=== PATIENT | female | born 1995 | race Two or more races ===

== ENCOUNTER 2019-07-11 20:19 | Emergency (ER) | payer MEDICAID ==
[~2019-07-11] VITALS: Ht 177.8 cm; Wt 81.6 kg
[2019-07-11 20:57] VITALS: BP 141/84
== END 2019-07-12 01:32 | disposition left against medical advice (07) ==
LOC: ER 20:19
DX: R10.31 Right lower quadrant pain (principal); Z32.01 Encounter for pregnancy test, result positive; Z53.21 Procedure and treatment not carried out due to patient leaving prior to being seen by health care provider